=== PATIENT | male | born 1995 | race Hispanic/Latino ===

== ENCOUNTER 2021-12-31 10:16 | Emergency (ER) | payer SELFPAY ==
[~2021-12-31] VITALS: Ht 177.8 cm; Wt 95.7 kg
[2021-12-31] MEDS ORDERED: CEPHALEXIN500 MG PO (11:49)
== END 2021-12-31 12:08 | disposition home or self-care (01) ==
LOC: ER 10:25
DX: S92.421A Displaced fracture of distal phalanx of right great toe, initial encounter for closed fracture (principal); W22.09XA Striking against other stationary object, initial encounter; Y92.017 Garden or yard in single-family (private) house as the place of occurrence of the external cause
CPT/HCPCS: 99283